=== PATIENT | male | born 1955 | race Caucasian/White ===

== ENCOUNTER 2016-09-29 11:05 | Emergency (ER) | payer SELFPAY ==
--- NOTE | ~2016-09-29 | CR63 ---
[facility] A Service of [facility] RADIOLOGY TEXT RESULTS PATIENT: DASIA ALDANA LOCATION: SED : 53 UNIT #: [id number] AGE: [address]: Silvia Roca APRN SEX: M ORDER DR: [id number] [place] [id number] E MR#: [id number] Acc #: [id number] NAME: DASIA ALDANA. : 1955 SEX: M STUDY DATE/TIME: 09/29/2016 11:37 UNIT: SED ROOM: STUDY DESCRIPTION: CR Chest 2 View Attending Physician: Silvia Roca A.P.R.N. Ordering Physician: Silvia Roca A.P.R.N. Primary Care Physician: No Primary Care Physician MEDICAL IMAGING REPORT This report is preliminary unless electronic signature is present. EXAM Chest, 09/29/2016, [facility]. HISTORY 61-year-old male status post fall 2 days ago. Right side body pain, right-side rib pain COMPARISON Chest none. FINDINGS PA and lateral chest views show normal cardiac size and configuration. Hilar structures and mediastinal contours are normal. Small calcified right hilar nodes present. Lungs are expanded and clear with no infiltrates. There is no pneumothorax. No visualized rib fracture. IMPRESSION Negative chest. Dictated by... Fausto Chen M.D. THIS IS AN ELECTRONICALLY VERIFIED REPORT Fausto Chen M.D. at 09/30/2016 8:12 AM VÍCTOR/deepa TD: 09/29/2016 15:44 JOB #: [id number] MEDICAL IMAGING REPORT [facility] A Service of [facility] RADIOLOGY TEXT RESULTS PATIENT: DASIA ALDANA LOCATION: SED : 53 UNIT #: [id number] AGE: [address]: Silvia Roca APRN SEX: M ORDER DR: Page 1 of 1
--- NOTE | ~2016-09-29 | CR94 ---
[facility]. [facility] A Service of [facility] & [facility] RADIOLOGY TEXT RESULTS PATIENT: DASIA ALDANA LOCATION: SED : 53 UNIT #: [id number] AGE: [address]: Silvia Roca APRN SEX: M ORDER DR: [id number] [place] [id number] E MR#: [id number] Acc #: [id number] NAME: DASIA ALDANA : 1955 SEX: M STUDY DATE/TIME: 09/29/2016 11:37 UNIT: SED ROOM: STUDY DESCRIPTION: CR Elbow Min 3 Views Rt Attending Physician: Silvia Roca A.P.R.N. Ordering Physician: Silvia Roca A.P.R.N. Primary Care Physician: No Primary Care Physician MEDICAL IMAGING REPORT This report is preliminary unless electronic signature is present. EXAM Right elbow 09/29 INDICATIONS Elbow pain after fall 2 days ago. FINDINGS Three views of the elbow were obtained. There is no fracture or malalignment. There is no joint effusion. IMPRESSION Negative right elbow. Dictated by... Jackson Massey Jr., M.D. THIS IS AN ELECTRONICALLY VERIFIED REPORT Jackson Massey Jr., M.D. at 09/29/2016 5:11 PM LOUIS/ramiro TD: 09/29/2016 15:41 JOB #: [id number] MEDICAL IMAGING REPORT Page 1 of 1
--- NOTE | ~2016-09-29 | CR127 ---
[facility] A Service of [facility] & [facility] RADIOLOGY TEXT RESULTS PATIENT: DASIA ALDANA LOCATION: SED : 53 UNIT #: [id number] AGE: [address]: Silvia Roca APRN SEX: M ORDER DR: [id number] [place] [id number] E MR#: [id number] Acc #: [id number] NAME: DASIA ALDANA : 1955 SEX: M STUDY DATE/TIME: 09/29/2016 11:37 UNIT: SED ROOM: STUDY DESCRIPTION: CR Foot Complete Min 3 View Rt Attending Physician: Silvia Roca A.P.R.N. Ordering Physician: Silvia Roca A.P.R.N. Primary Care Physician: No Primary Care Physician MEDICAL IMAGING REPORT This report is preliminary unless electronic signature is present. EXAM Right foot 09/29 INDICATIONS Foot pain after fall 2 days ago. FINDINGS Three views of the right foot were obtained. There is a laceration in the heel of the foot. There is a small plantar calcaneal spur. No acute fracture or malalignment is seen. No radiopaque foreign bodies. IMPRESSION Laceration in the heel. No fracture or radiopaque foreign body identified. Dictated by... Jackson Massey Jr., M.D. THIS IS AN ELECTRONICALLY VERIFIED REPORT Jackson Massey Jr., M.D. at 09/29/2016 5:11 PM LOUIS/ramiro TD: 09/29/2016 15:42 JOB #: [id number] MEDICAL IMAGING REPORT Page 1 of 1
[2016-09-29] MEDS ORDERED: CELEBREX (11:13)
== END 2016-09-29 12:58 | disposition home or self-care (01) ==
LOC: SED 11:05
DX: S91.311A Laceration without foreign body, right foot, initial encounter (principal); S91.111A Laceration without foreign body of right great toe without damage to nail, initial encounter; S20.211A Contusion of right front wall of thorax, initial encounter; S50.311A Abrasion of right elbow, initial encounter; R03.0 Elevated blood-pressure reading, without diagnosis of hypertension; Z23 Encounter for immunization; W19.XXXA Unspecified fall, initial encounter; Y92.830 Public park as the place of occurrence of the external cause
CPT/HCPCS: 71020; 73080; 73630; 90471; 90715; 99283